=== PATIENT | male | born 1945 | race Caucasian/White ===

== ENCOUNTER → 2020-02-28 12:52 | Outpatient (CLI) | payer MEDICARE, OTHER, SELFPAY ==
[2020-02-28 13:23] LABS: Pathologist Comment May follow
[2020-02-28 13:53] LABS: Synovial Fld Mononuclear WBC % 85.5 %; Synovial Fld Polynuclear WBC # 0.129 10^3/uL; Synovial Fld Polynuclear WBC % 14.5 %
[2020-02-28 14:02] LABS: AUTO B FLUID DILUENT BKGD CT WBC <0.1 RBC <0.01 (W<.1,R<.01); Source- Body Fluid SYNOVIAL
[2020-02-28 14:03] LABS: Appearance /Synovial Fluid Sl Cl (CLEAR); Color / Synovial Fluid Yellow (Pale Yellow); Viscosity / Synovial Fluid Sl. Viscous (HIGH)
[2020-02-28 14:05] LABS: CRYSTALS, BODY FLUID See PATH REV
[2020-02-28 14:10] LABS: RBC /Synovial Fluid 230 /mm3 (0)
[2020-02-28 14:30] LABS: Lymph 97 %; Monocyte /Synovial Fluid 3 %
[2020-03-02 13:56] LABS: Pathologist Review Reviewed
== END ==
PROVIDERS: Referring Provider Internal Medicine Rheumatology; Visit Provider Internal Medicine Rheumatology
DX: M05.79 Rheumatoid arthritis with rheumatoid factor of multiple sites without organ or systems involvement (principal); I10 Essential (primary) hypertension; I25.10 Atherosclerotic heart disease of native coronary artery without angina pectoris; K21.9 Gastro-esophageal reflux disease without esophagitis; E78.5 Hyperlipidemia, unspecified; N40.0 Benign prostatic hyperplasia without lower urinary tract symptoms; K57.90 Diverticulosis of intestine, part unspecified, without perforation or abscess without bleeding
CPT/HCPCS: 87070; 87075; 87205; 89050; 89051; 89060

== ENCOUNTER 2020-04-23 13:05 | Outpatient (RCR) | payer MEDICARE, OTHER, SELFPAY ==
[2020-04-23] MEDS: COVID-19 VACC, MRNA(PFIZER)/PF 30 MCG/0.3 ML SYRINGE IM (14:08)
[2020-05-14] MEDS: COVID-19 VACC, MRNA(PFIZER)/PF 30 MCG/0.3 ML SYRINGE IM (13:57)
== END 2020-07-21 23:59 ==
LOC: IMMUN 13:05
PROVIDERS: Visit Provider Family Medicine
DX: Z23 Encounter for immunization (principal)
CPT/HCPCS: 0001A; 0002A; 91300

== ENCOUNTER → 2022-04-15 | Outpatient (CLI) | payer MEDICARE, OTHER, SELFPAY ==
[2022-04-15 13:37] LABS: Pathologist Comment May follow
[2022-04-15 14:48] LABS: Synovial Fld Mononuclear WBC % 18.9 %; Synovial Fld Polynuclear WBC % 81.1 %
[2022-04-15 15:16] LABS: RBC /Synovial Fluid 0.012 10^6/uL (0)
[2022-04-15 15:18] LABS: Synovial Fld Mononuclear WBC # 2.422 10^3/ul
[2022-04-15 15:19] LABS: Synovial Fld Polynuclear WBC # 11.188 10^3/uL
[2022-04-15 16:32] LABS: AUTO B FLUID DILUENT BKGD CT WBC <0.1 RBC <0.01 (W<.1,R<.01); Appearance /Synovial Fluid Clear (CLEAR); CRYSTALS, BODY FLUID NO CRYSTALS SEEN; Color / Synovial Fluid Yellow (Pale Yellow); Lymph 1 %; Monocyte /Synovial Fluid 3 %; Neutrophil 96 % (0-25); Source / Synovial Fluid RIGHT KNEE; Source- Body Fluid SYNOVIAL
[2022-04-15 16:33] LABS: Body Fluid QC Type(s) BF1Q,BF2Q
[2022-04-18 13:16] LABS: Pathologist Review Reviewed
== END | disposition home or self-care (01) ==
LOC: LABSPEC 13:21
PROVIDERS: Referring Provider Internal Medicine Rheumatology; Visit Provider Internal Medicine Rheumatology
DX: M05.70 Rheumatoid arthritis with rheumatoid factor of unspecified site without organ or systems involvement (principal); Z79.899 Other long term (current) drug therapy; M25.561 Pain in right knee
CPT/HCPCS: 87070; 87075; 87205; 89050; 89051; 89060